=== PATIENT | female | born 1930 | race Caucasian/White ===

== ENCOUNTER → 2017-05-28 | Outpatient (CLI) | payer MEDICARE, MEDICAID ==
[~2017-05-28] MED LIST: ALLEGRA 180MG180 MG PO; CENTRUM SILVER1 TA1 PO; COLACE GENERIC100 MG PO; COTOLONE5 MG PO; COUMADIN2.5 MG PO; COUMADIN5 M1 PO; COUMADIN5 MG PO; DUONEB 3 MG/3 ML3 ML IH; FEXOFENADINE60 MG PO; IPRATROPIUM BROM3 M1 IH; LASIX 40MG. TAB40 MG PO; MULTI VITAMINS1 TA1 PO; Oxycodone5 MG PO; PREDNISONE 5MG.5 MG PO; PROPRANOLOL HCL20 M1 PO; TESSALON PERLE200 MG PO; TYLENOL ES500 MG PO; TYLENOL325 MG PO; VITAMIN D350000 UNIT PO; WARFARIN SODIU2.5 MG PO; WARFARIN SODIUM1 MG PO; WARFARIN4 MG PO; ZESTRIL 20MG TA20 MG PO; ZYRTEC10 M2 PO
--- NOTE | 2017-05-31 18:30 | RADIOLOGY REPORT PS360 ---
PROCEDURE: 2-D M-mode and color Doppler study INDICATIONS FOR THE TEST: Chest pain COPD+ Heart Murmur Tobacco Smoking+ Palpitations Fatigue Syncope Edema Hypertension+Diabetes Mellitus Rheumatic Fever SOB+ELIZABETH Obesity Hyperlipidemia Family History HD Additional History PATIENT INFORMATION HEIGHT:64 WEIGHT:134 GENDER: Female B/P:130/74 2-D/M-MODE INTERPRETATION: 2-D MEASUREMENTS OBSERVED VALUES IN CMS Right Ventricular Dimension (RVDd) 2.6 Interventricular Septum (Thickness)(IVsd) 1.6 Left Ventricular Internal Dimensions(LVIDd) 4.4 Left Ventricular Posterior Wall (Thickness)(LVPWd) 1.0 Aortic Root 2.9 Aortic Cusp Separation 0.9 Left Atrial Dimensions (LAD) 4.6 2D 1. Left atrium is moderately enlarged, left ventricle is normal size, there is mild concentric left ventricular hypertrophy present, visually estimated ejection fraction of 55-60% with no obvious regional wall motion abnormality. 2. The right atrium and right ventricle are moderately enlarged, contractility of the right ventricle is normal. 3. The aortic valve is heavily thickened and calcified with severe distraction the leaflet mobility. 4. The mitral valve has mitral annular calcification which extends and both anterior and posterior mitral leaflet. 5. The tricuspid valve leaflets are minimally thickened. 6. The pulmonic valve is poorly visualized. 7. No significant pericardial effusion noted. DOPPLER INTERROGATION: 1. The maximum aortic out flow velocity recorded study is 4.3 m/s, resulting in a mean gradient across valve of 42 mmHg, valve area 0.64 sq cm represents severe aortic stenosis, there is no aortic insufficiency. 2. The mitral inflow velocity within normal range, there is no mitral stenosis, there is mild mitral regurgitation, mitral inflow pattern is suggestive of impaired LV relaxation. 3. There is moderate to severe tricuspid regurgitation noted, calculated right ventricular systolic pressure is 58 mmHg consistent with moderate pulmonary hypertension. CONCLUSION: 1. Moderate biatrial enlargement, normal left ventricular size, mild concentric left ventricular hypertrophy present, visually estimated ejection fraction 55-60% with no obvious regional wall motion abnormality. Doppler evidence of impaired LV relaxation seen. 2. Thickened and calcified aortic valve with mean gradient across valve of 42 mmHg and the valve area of 0.64 square centimeters represents severe aortic stenosis, there is no aortic insufficiency present. 3. Mild mitral and moderate to severe mitral regurgitation, calculated right ventricular systolic pressure 58 mmHg consistent with moderate pulmonary hypertension. 4. No significant pericardial effusion noted 5. During this study patient has intermittent supraventricular tachycardia.
== END ==
LOC: RT 05-24 15:15
DX: R60.1 Generalized edema (principal); E87.6 Hypokalemia; Z79.01 Long term (current) use of anticoagulants; I82.409 Acute embolism and thrombosis of unspecified deep veins of unspecified lower extremity

== ENCOUNTER 2017-06-29 10:27 | Emergency (ER) | payer MEDICARE, MEDICAID ==
[~2017-06-29] VITALS: Ht 157.5 cm; Wt 68.0 kg
[2017-06-29] MEDS ORDERED: ELIQUIS2.5 MG PO (10:36)
[2017-06-29] MEDS ORDERED: POTASSIUM CHLO20 ME2 PO (10:36)
[2017-06-29] MEDS ORDERED: LISINOPRIL20 MG PO (10:38)
[2017-06-29] MEDS ORDERED: INDERAL 20MG. T20 MG PO (10:38)
[2017-06-29] MEDS ORDERED: CEFUROXIME AXE500 MG PO (10:39)
[2017-06-29 10:40] VITALS: BP 0/0
--- OUTSIDE RECORDS SUMMARY | 2017-06-29 10:41 | External Medical Summary Rpt | CCD ---
Author Author , BERNICE Organization BERNICE Address Unknown Phone [email or web address] Purpose Continuity of Care Document - 05-24-2017 through 2016 Results Labs Lab Lab Date Result Refere Interp Status Commen Order Detail nces retati t Range on Basic metabolic panel (05-24-2017 08:00) Serum 10-30-2 = 144 136-145 complet sodium 017 mmoL/L ed measure 08:00 ment Serum 10-30-2 = 4.9 3.5-5.1 complet potassi 017 mmoL/L ed um 08:00 measure ment Serum 10-30-2 = 89 74-106 complet or 017 mg/dL ed plasma 08:00 glucose measure ment (mas Estimat 10-30-2 = 68 59- complet ed 017 ML/MIN ed glomeru 08:00 lar filtrat ion rate (GF Comment: REFERENCE RANGE: >60 ML/MIN/1.73 SQUARE METERS Comment: If this patient is -Bahamian, then multiply the Comment: result by 1.210. Serum 10-30-2 = 0.8 0.55-1. complet or 017 mg/dL 02 ed plasma 08:00 creatin ine measure ment ( Carbon 10-30-2 = 36 21.0-32 complet dioxide 017 mmoL/L .0 ed 08:00 measure ment Serum 10-30-2 = 105 98-107 complet or 017 mmoL/L ed plasma 08:00 chlorid e measure ment (mo Serum 10-30-2 = 8.9 8.5-10. complet or 017 mg/dL 1 ed plasma 08:00 calcium measure ment (mas Serum 10-30-2 = 27 7-18 complet or 017 mg/dL ed plasma 08:00 urea nitroge n measure men
--- OUTSIDE RECORDS SUMMARY | 2017-06-29 10:41 | External Medical Summary Rpt | CCD ---
Author Author , BERNICE Organization BERNICE Address Unknown Phone [email or web address] Purpose Continuity of Care Document - 05-24-2017 [...] SQUARE METERS Comment: If this patient is -Canadian, then multiply the Comment: result by 1.210. [...]
--- OUTSIDE RECORDS SUMMARY | 2017-06-29 10:42 | External Medical Summary Rpt ---
Author Author BERNICE Clarke, ALFREDCANDI [employer] Organization [employer] Address Unknown Phone Unavailable Results Basic metabolic panel in Blood Observa Value Referen Units Interpr Notes Date tion ce etation Range Urea 7 - 18 mg/dL High No May 24 nitrogen informati 2016 8:00 [Mass/vol on in AM ume] in source Serum or data Plasma Calcium 8.5 - mg/dL Normal No May 24 [Mass/vol 10.1 informati 2016 8:00 ume] in on in AM Serum or source Plasma data Chloride 98 - 107 mmoL/L Normal No May 24 [Moles/vo informati 2016 8:00 lume] in on in AM Serum or source Plasma data Carbon 21.0 - mmoL/L High No May 24 dioxide, 32.0 informati 2017 8:00 total on in AM [Moles/vo source lume] in data Serum or Plasma Creatinin 0.55 - mg/dL Normal No May 24 e 1.02 informati 2017 8:00 [Mass/vol on in AM ume] in source Serum or data Plasma Estimated 59- ML/MIN No REFERENCE May 24 informati RANGE: 2017 8:00 glomerula on in >60 AM r source ML/MIN/1. filtratio data 73 SQUARE n rate METERSIf (GF this patient is -A merican, then multiply theresult by 1.210. Glucose 74 - 106 mg/dL Normal No May 24 [Mass/vol informati 2016 8:00 ume] in on in AM Serum or source Plasma data Potassium 3.5 - 5.1 mmoL/L Normal No May 24 informati 2017 8:00 [Moles/vo on in AM lume] in source Serum or data Plasma Sodium 136 - 145 mmoL/L Normal No May 24 [Moles/vo informati 2017 8:00 lume] in on in AM Serum or source Plasma data
--- OUTSIDE RECORDS SUMMARY | 2017-06-29 10:42 | External Medical Summary Rpt | CCD ---
Demographics Preferred Language Mozambican Marital Status Unknown Christian Affiliation Unknown Race Unknown Ethnic Group Unknown Author Author , BERNICE QUEEN Address Unknown Phone Immunization No patient found.
--- OUTSIDE RECORDS SUMMARY | 2017-06-29 10:42 | External Medical Summary Rpt | CCD ---
Author Author [employer] Organization [employer] Address Unknown Phone Unavailable Purpose Continuity of Care Document - through 2016
--- OUTSIDE RECORDS SUMMARY | 2017-06-29 10:42 | External Medical Summary Rpt | CCD ---
Demographics Preferred Language [place] Verde[place] Marital Status Unknown Yarsanism Affiliation Unknown Race Unknown Ethnic Group Unknown Author Author , BERNICE QUEEN Address Unknown Phone Immunization No patient found.
[2017-06-29 11:07] LABS: LYMPH # 5.6 K/mm3 (0.7-4.5); LYMPH % 37.7 % (10-50.0)
[2017-06-29 11:15] LABS: HEMOGLOBIN 9.9 g/dL (12.2-16.2)
--- NOTE | 2017-06-29 11:22 | Emergency Room Report ---
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 PATIENT INTUBATED, HAS ESTABLISHED LINE, CPR IN PROGRESS. ASYSTOLE. 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 N Clinical Suspician of Infection? N Mental Status: 3 - Acutely Altered Sepsis Risk:Low Sepsis Risk Have you (or family members/close friends) recently traveled outside the [place]? N If Yes, where/when: Have you had exposure to infectious disease within the past month? TB? Other? Specify: CPR in progress; patient talked on phone with family at 7:15 this morning and she was confused; had cephalgia and SOB last night. Had COPD and per my d/w PCP Dr. Jane, she had a large lung mass and did not reveal this dx to family. Family states she had taken herself off her medications and off her oxygen in the last day or so. ROS limited due to CPR in progress. EMS states astystole on their arrival. ETT, CPR, arrives in asystole, CPR in progress, bagged, no neurogical responsiveness. ALLERGIES Coded Allergies: bacitracin (From Neosporin ([id number])) (Intermediate, I-HIVES 08/05/15) codeine (Intermediate, I-RASH 08/05/15) influenza virus vaccine, specific (influenza virus vacc,specific) (Intermediate, I-RASH 08/05/15) latex (Intermediate, I-HIVES 08/05/15) neomycin (From Neosporin ([id number]-lsb-[id number])) (Intermediate, I-HIVES 08/05/15) polymyxin B (From Neosporin (dee-hea-jlark)) (Intermediate, I-HIVES 08/05/15) tuberculin, purified protein deriva (From Tubersol) (Intermediate, I-RASH ) adhesive (I-RASH 08/05/15) Home Medications Active Scripts Docusate Sodium (Colace 100MG Cap) 100 MG PO BID #60 CAP Prov: 01/24/16 Acetaminophen (Tylenol) 500 MG PO Q4HP PRN MILD PAIN, FEVER OR HEADACHE #30 TAB Prov: 01/24/16 Lisinopril (Zestril 20MG Tab) 20 MG PO DAILY #30 Ref 6 Prov: 03/06/11 Reported Medications Cholecalciferol (Vitamin D3) (Vitamin D3) 50,000 UNIT PO TWICE A WEEK PROPRANOLOL HCL (Propranolol HCl) 20 MG PO BID Furosemide (Lasix 40MG) 40 MG PO DAILY CETIRIZINE HCL (Zyrtec) 10 MG PO DAILY ALBUTEROL-IPRATROPIUM (Iprat-Albut 0.5-3(2.5) MG/3 Ml) 3 ML IH Q6HP Prednisone (Prednisone 5MG) 5 MG PO DAILY Apixaban (Eliquis) 2.5 MG PO BID POTASSIUM CHL (Potassium Chloride) 20 MEQ PO BID Propranolol Hcl (Inderal 20MG. Tablet) 40 MG PO BID #360 Lisinopril 10 MG PO DAILY #30 Cefuroxime Axetil (Cefuroxime) 500 MG PO BID #20 History Medical History General CAD? No Angina: No NV: No Hypertension? Yes Hyperlipidemia? No CHF? No DVT? Yes PE? No COPD? Yes Asthma? Yes Anemia? No GERD? No Gastric ulcers? No GI Bleed? No Hernia? Yes Thyroid Problems? No Hypothyroidism? No CVA? No Seizures? No Diabetes? No Renal Insuffiency? No End Stage Renal Disease? No UTI? No Stones? No BPH? No GB Disease: Yes Nephritic Syndrome? No Asplenia? No Hepatitis? No Sickle Cell Disease? No Arthritis? Yes Migraines? No Cataracts? Yes Glaucoma? Yes MRSA? No HIV? No TB? No Anxiety? No Depression? No Cancer? No Immunization Hx DT/Tetanus Unknown Flu REFUSES Pneumonia Received In Past Surgical Hx Previous Surgery?Y HERNIA REPAIR TUBAL LIGATION APPENDECTOMY L CATARACT LAP TARSHA CATARACT X2 Family History Family Hx Diabetes No CAD Yes Hypertension Yes Hyperlipidemia Yes Cancer Yes TB No Social History Smoking Hx Smoker: Never Smoker Tobacco: No Packs/day < 1 Pack Alcohol Alcohol: No Review of Systems All Other Systems Reviewed and Negative Respiratory see HPI Cardiovascular see HPI Physical Exam Vital Signs Vital Signs Date Time Temp Pulse Resp B/P Pulse O2 O2 Flow FiO2 Ox Delivery Rate 06/29 1110 0 06/29 1040 0 0 0/0 0 General Appearance normal appearance (moribund CPR in progress) Ear, Nose, Throat hearing grossly normal (ETT in place no FB no gag) Neck normal inspection Respiratory Status Yes: respiratory distress, trachea midline, chest symmetrical. Lung Sounds bilateral: normal breath sounds, lungs clear, decreased breath sounds. Cardiovascular normal exam (asystole) Peripheral Pulses Pulses normal No (absemt) Gastrointestinal normal bowel sounds (soft no mass), no pulsatile mass Extremities bandages distally w/ edema Strength 1 Upper Ext (L), 1 Upper Ext (R), 1 Lower Ext (L), 1 Lower Ext (R) Neurologic moribund. NO gag. No spontaneous movements. No vitals. Appears . Glascow Coma Scale Glascow Coma Scale Response Value EYE response: 1 No Response 1 MOTOR response: 1 NO RESPONSE 1 VERBAL response: 1 No Response 1 Total 3 Reflexes Reflexes normal No (absent) Skin pallor Medical Decision Making LABS/Meds/Orders Pt receiving controlled substance in ED? No Results/Orders Laboratory Tests 06/29/17 1030: Sodium 141, Potassium 6.5 *H, Chloride 109 H, Carbon Dioxide 25, BUN 29 H, Creatinine 1.0, Estimated Creat Clear 43 L, Estimated GFR (MDRD) 53 L, Glucose 151 H, Calcium 21.6 *H, Total Bilirubin Pending, AST Pending, ALT Pending, Alkaline Phosphatase Pending, Total Protein Pending, Albumin Pending, Globulin Pending, Albumin/Globulin Ratio Pending, PT 12.8 H, INR 1.18 H, WBC 14.9 H, RBC 4.34, Hgb 9.9 L, Hct 39.1, MCV 90.0, RDW 16.2, Plt Count 194, MPV 9.0, Gran % 47.6, Gran # 7.1, Lymphocytes % 37.7, Monocytes % 13.4 H, Eosinophils % 0.6, Basophils % 0.7, Lymphocytes # 5.6 H, Monocytes # 2.0 H, Eosinophils # 0.1, Basophils # 0.1, PUBS MCHC 25.5 L, MCH 22.9 L Current Medication Orders Sig/Geno Start time Last Medication Dose Route Stop Time Status Admin Calcium Chloride 1 GM PRN PRN 06/29 1115 AC 06/29 IV 06/29 1243 1028 Epinephrine HCl 1 MG PRN PRN 06/29 1115 AC 06/29 IV 06/29 1243 1033 Sodium Chloride 10 ML PRN PRN 06/29 1115 AC IV 06/30 1103 Orders Procedure Date/time Status OXYGEN PER NURSE 06/29 110 Active CODE STATUS 06/29 110 Active CODE BLUE ORDERS/PROC. APPROVE 06/29 110 Active IV SALINE LOCK 06/29 110 Active PROTHROMBIN TIME 06/29 110 Complete FSBS REQUEST BY CARE AREA 06/29 1103 Active CBC WITH AUTO DIFF 06/29 1103 Complete CHEM 12 PROFILE 06/29 110 Active Progress ED Progress Notes 1 Date 06/29/17 Time 1103 ED Progress Notes 2 Date 06/29/[address] Jane consulted as patient had ROSC briefly s/p epi given and patient family at bedside requesting withdrawal of all treatment, withdraw ETT. CPR was stopped and the patient slowly went from palpable HR to PEA to at 1103 with no change in neurological status and recheck by MD to verify having . Departure Departure Time of Disposition 1103 Disposition Clinical Impression Primary Impression: Lung cancer Secondary Impressions: Collapse with respiratory arrest on examination, PEA ( Pulseless electrical activity) Condition STABLE Referrals Abraham Jane MD (Family) ED Critical Care Critical Care Yes Time spent < 30 min Vital system(s) involved: Circulatory Failure, Respiratory Failure I was present at bedside for Coordinating pt's care, During my initial exam, Reviewing lab results, Discussing pt condition, For re-examinations (d/wfamily and consult PCP) at 1122
== END 2017-06-29 12:55 | disposition expired ==
LOC: ER 10:27
PROVIDERS: Emergency Medicine
DX: C34.90 Malignant neoplasm of unspecified part of unspecified bronchus or lung (principal); R09.2 Respiratory arrest; Z87.891 Personal history of nicotine dependence; I10 Essential (primary) hypertension; J44.9 Chronic obstructive pulmonary disease, unspecified; Z86.718 Personal history of other venous thrombosis and embolism; Z79.01 Long term (current) use of anticoagulants; Z51.81 Encounter for therapeutic drug level monitoring; Z88.7 Allergy status to serum and vaccine; Z91.040 Latex allergy status; Z79.899 Other long term (current) drug therapy; Z88.6 Allergy status to analgesic agent